=== PATIENT | female | born 1990 | race African-American/Black ===

== ENCOUNTER 2017-12-24 12:00 | Emergency (ER) | payer OTHER ==
[2017-12-24] MEDS ORDERED: SODIUM CHLORIDE 0.9% 1000 ML INFUS.BAG IV ONE (12:16)
[2017-12-24] MEDS ORDERED: ONDANSETRON 4 MG/2 ML VIAL IVPUSH ONE (12:16)
[2017-12-24 12:25] VITALS: TEMP 98.7; BMI 42.0
[2017-12-24] MEDS ORDERED: ONDANSETRON 4 MG/2 ML VIAL ONE (12:27)
--- NOTE | 2017-12-24 12:30 | PDOC ---
History of Present Illness - General Chief Complaint: Nausea/Vomiting Stated Complaint: ABDOMINAL PAIN, BLOOD IN STOOL Time Seen by Provider: 12/24/17 12:16 History Source: Patient Exam Limitations: No Limitations - History of Present Illness Initial Comments: 12/24/17 12:25 27 yo F here with c/o soft stool with blood, followed by chills, diaphoresis, feeling lightheaded. does suspect she has h/o hemorrhoids. no h/o diarreha. only one stool today. had nausea, no vomiting. no f/ no h/o crohns or ulcerative colitis. does occasionally get blood with wiping after stools. had lower abd pain crampy in nature just prior to going to bathroom. has since resolved. now c/o lower back pain. no new weakness, no new rash. Past History - Past Medical History Allergies/Adverse Reactions: Allergies Allergy/AdvReac Type Severity Reaction Status Date / Time No Known Allergies Allergy Verified 12/24/17 12:14 Home Medications: Ambulatory Orders Bupropion HCl [Wellbutrin -] 75 mg PO DAILY 12/24/17 Sertraline HCl [Zoloft] 100 mg PO DAILY 12/24/17 Review of Systems - Review of Systems Constitutional: Yes: Chills, Diaphoresis. No: Fever Respiratory: No: Cough, Orthopnea, Shortness of Breath Cardiac (ROS): No: Chest Pain ABD/GI: Yes: Abd. Pain w/ defecation, Nausea, Rectal Bleeding : No: Burning, Dysuria, Discharge Integumentary: No: Bruising, Change in Color, Rash All Other Systems: Reviewed and Negative *Physical Exam - Physical Exam Comments: 12/24/17 12:28 awake alert lungs clear bilaterally heart rrr no mrg abd soft mild suprapubic ttp. no rebound no guarding. ext wwp. no cva tenderness. skin warm and dry no rash. nuero alert oriented x 3. ED Treatment Course - LABORATORY CBC & Chemistry Diagram: 12/24/17 12:45 12/24/17 12:45 Medical Decision Making - Medical Decision Making 12/24/17 12:29 27 yo obses F here with bloody bm followed by near syncope. differential gi bleed, hemorrhoids, vasovagal reaction, uti . plan ivf, labs cbc cmp . rectal exam. pt initially bp 85/45, repeat is better 116/69. ua ucg. 12/24/17 14:51 pt with normal blood work. rectal exam no gross blood. palpable hemorrhoid. non thrombosed. guiac negative. pt bp improved. likely vasovagal and bleeding from hemorrhoids. will refer to GI dr. Chavez, for followup. *DC/Admit/Observation/Transfer Diagnosis at time of Disposition: Near syncope, Hemorrhoids - Discharge Dispostion Disposition: HOME Condition at time of disposition: Improved Decision to Admit order: No - Referrals Referrals: Adelso Chavez MD [Staff Physician] - - Patient Instructions Printed Discharge Instructions: Hemorrhoids Additional Instructions: be sure to eats lots of fiber, take over the counter stool softner such as miralax . you can use over the counter cream such as preparation H for rectal discomfort. be sure to drink lots of fluids. all of your blood work is normal. your stool was negative for blood. you should follow up with a multifocal lens inspector. see referral information for DR Adelso Chavez, call to schedule followup appointment. return for any problems or concerns. - Post Discharge Activity
[2017-12-24 13:33] LABS: BASO % 0.3 % (0-2.0); EOS % 0.9 % (0-4.5); HEMATOCRIT 34.7 % (32.4-45.2); HEMOGLOBIN 11.1 GM/dl (10.7-15.3); LYMPH % 15.6 % (8-40); MCH 25.2 pg (25.7-33.7); MCHC 32.2 g/dl (32.0-36.0); MEAN CELL VOLUME 78.3 fl (80-96); MEAN PLT VOLUME 7.7 fl (7.5-11.1); MONO % 5.9 % (3.8-10.2); NEUT % 77.3 % (42.8-82.8); PLATELET COUNT 339 K/MM3 (134-434); RBC 4.43 M/mm3 (3.60-5.2); RDW 16.2 % (11.6-15.6); WHITE BLOOD COUNT 5.8 K/mm3 (4.0-10.8)
[2017-12-24 13:41] LABS: ALBUMIN 3.8 g/dl (3.5-5.0); ALK PHOS 69 U/L (32-92); ANION GAP 7 MMOL/L (8-16); BILIRUBIN,TOTAL 0.4 mg/dl (0.2-1.0); BLOOD UREA NITROGEN 8 mg/dl (7-18); CALCIUM 9.1 mg/dl (8.4-10.2); CHLORIDE 102 mmol/L (98-107); CO2 26 mmol/L (22-28); CREATININE 0.8 mg/dl (0.6-1.3); GLUCOSE,RANDOM 95 mg/dl (74-106); SGOT/AST 24 U/L (10-42); SGPT/ALT 18 U/L (10-40); SODIUM 135 mmol/L (136-145)
[2017-12-24 14:05] LABS: INR 1.07 (0.82-1.09)
[2017-12-24 14:06] LABS: HCG,QUALITATIVE URINE Negative
[2017-12-24 14:12] LABS: ACTIVATED PTT 28.7 SECONDS (25.2-36.5)
[2017-12-24 14:31] LABS: URINE APPEARANCE Clear; URINE BILIRUBIN Negative (NEGATIVE); URINE COLOR Yellow; URINE GLUCOSE (UA) Negative (NEGATIVE); URINE KETONE Negative (NEGATIVE); URINE LEUK ESTERASE Negative (NEGATIVE); URINE NITRITE Negative (NEGATIVE); URINE PROTEIN Negative (NEGATIVE); URINE UROBILINOGEN 0.2 (0.2-1.0)
[2017-12-24 14:50] VITALS: BP 132/80; PULSE 72
[2017-12-24 15:40] LABS: EPI CELLS FEW /HPF
== END 2017-12-24 15:00 | disposition home or self-care (01) ==
LOC: FER 12:00
PROC: 3E033GC Introduction of Other Therapeutic Substance into Peripheral Vein, Percutaneous Approach (ICD-10-PCS; principal; 2017-12-24)
PROC: 3E0337Z Introduction of Electrolytic and Water Balance Substance into Peripheral Vein, Percutaneous Approach (ICD-10-PCS; 2017-12-24)
DX: R55 Syncope and collapse (principal); K64.9 Unspecified hemorrhoids
CPT/HCPCS: 36415; 80053; 81003; 81015; 82272; 84703; 85025; 85610; 85730; 99283-25; J7030